=== PATIENT | female | born 1955 | race Caucasian/White ===

== ENCOUNTER → 2020-10-24 | Outpatient (CLI) | payer MEDICARE, BC ==
--- NOTE | 2020-10-28 14:10 | RAD ---
EXAM: BILATERAL DIGITAL 3D SCREENING MAMMOGRAPHY. HISTORY: Routine mammographic screening. TECHNIQUE: Bilateral digital 3D and tomographic images were obtained in CC and MLO projections. Compu ter-aided detection was applied. COMPARISON: 10/03/2018, 02/11/1950. COMPOSITION: C. The breasts are heterogeneously dense, which may obscure small masses. FINDINGS: There are innumerable subcentimeter nodules bilaterally, most likely reflecting small cysts . A few on the left are new since the prior study. These are seen in the subareolar mid/posterior dep th, and laterally, just superior to the nipple line. See annotations. The right nodules appear approximately stable. Scattered calcifications are benign. BI-RADS CATEGORY 0: Incomplete--Needs Additional Imaging Evaluation. RECOMMENDATION: 1. Sonography of both breasts to assess many small nodules likely reflecting subcentimeter cysts, lianna e of which appear new. Electronically signed by: Savanna Rios MD (10/28/2020 2:07 PM) [id number]
== END ==
LOC: MAMMO 14:55
PROVIDERS: ATTEND Specialist
DX: Z12.31 Encounter for screening mammogram for malignant neoplasm of breast (principal)
CPT/HCPCS: 77063; 77067

== ENCOUNTER → 2020-10-29 | Outpatient (CLI) | payer MEDICARE, BC ==
--- NOTE | 2020-10-29 13:28 | RAD ---
EXAM: DUAL ENERGY X-RAY ABSORPTIOMETRY (DEXA). HISTORY: Postmenopausal screening. FINDINGS: The lowest measured T-score is -0.7 in the lumbar spine, based on a bone mineral density of 1.101 g/cm^2. Refer to the worksheets for full detail. No comparison examinations are available. IMPRESSION: 1. Normal. Bone mineral density yields a T-score of -1.0 or greater. Fracture risk is low. 2. FRAX report: Not calculated. METHODOLOGY: Dual energy x-ray absorptiometry was performed to measure bone mineral density. The foll owing analysis is based on the 2019 Official Positions of the International Society for Clinical Dens itometry: Measurements of the hips and the average of L1-L4 are preferred. When the spine and/or hip cannot be feasibly measured or interpreted, or in the setting of hyperparathyroidism, distal radial bone minera l density may be measured. The lumbar spine T-score is based on the average bone mineral density of L1-L4. In the setting of art ifact or anatomic abnormality, some lumbar levels may be excluded, and the remaining levels used for calculation. A single lumbar level is not used for diagnosis, and if only a single level is available for assessment, another anatomic site will be used to assign a diagnosis. The hip T-score is based on the bone mineral density measurement of the femoral neck or total proxima l femur of either side, whichever is lowest. Bilateral mean values are not used for diagnosis. The forearm T-score is derived from 33% of the distal radius of the nondominant forearm. Electronically signed by: Carline Sharp MD (10/29/2020 1:26 PM) [id number]
== END ==
LOC: DXRAD 12:50
PROVIDERS: ATTEND Specialist
DX: Z78.0 Asymptomatic menopausal state (principal); Z00.00 Encounter for general adult medical examination without abnormal findings
CPT/HCPCS: 77080

== ENCOUNTER → 2020-11-05 | Outpatient (CLI) | payer MEDICARE, BC ==
--- NOTE | 2020-11-05 14:48 | RAD ---
US BREAST BILAT History:Reason: BILAT BREAST CALLBACK / Spl. Instructions: / History: Comparison: Mammogram October 24, 2020 Technique: Sonographic examination of the bilateral breasts. Findings: Right breast: Multiple small simple and complicated cysts within the right breast. Cluster of cysts w ithin the right breast 6:00 position 2 cm from the nipple measures approximately 3 cm. Left breast: Small cysts within the left breast largest measures 0.3 x 0.2 cm at 12:00 position and 3 :00 position 2 cm from the nipple measures 0.4 x 0.4 cm, corresponding with mammographic finding. Lef t breast intramammary lymph node at 2:00 position 8 cm from the nipple measures 0.8 cm. Impression: 1. Multiple bilateral breast cysts corresponding to mammographic findings. BI-RADS Category 2: Benign. Recommend return to annual screening with follow-up screening approximately October 2021. Electronically signed by: Alejandro Arellano DO (11/05/2020 2:45 PM) [id number]
== END ==
LOC: US 13:10
PROVIDERS: ATTEND Specialist
DX: N60.01 Solitary cyst of right breast (principal); N60.02 Solitary cyst of left breast
CPT/HCPCS: 76641